=== PATIENT | male | born 1965 | race Caucasian/White ===

== ENCOUNTER → 2022-05-18 | Outpatient (REF) | payer BC | LOC: M SFHCDERM 14:26 | PROVIDERS: ATTEND Nurse Practitioner Family | DX: D22.5 Melanocytic nevi of trunk (principal) ==

== ENCOUNTER → 2023-02-22 | Outpatient (REF) | payer BC | LOC: M LAB REF 16:42 | PROVIDERS: ATTEND Surgery | DX: D22.9 Melanocytic nevi, unspecified (principal) ==

== ENCOUNTER → 2023-09-06 | Outpatient (REF) | payer BC | LOC: M LAB REF 17:47 | PROVIDERS: ATTEND Surgery | DX: L90.5 Scar conditions and fibrosis of skin (principal) ==